=== PATIENT | male | born 1985 ===

== ENCOUNTER → 2022-08-26 15:49 | Outpatient (BNVA) | payer OTHER, SELFPAY | PROVIDERS: Referring Provider Family Medicine; Visit Provider Podiatrist Foot & Ankle Surgery | DX: M25.371 Other instability, right ankle (principal); Q66.71 Congenital pes cavus, right foot; Q66.72 Congenital pes cavus, left foot | CPT/HCPCS: 73610; 99204 ==

== ENCOUNTER 2022-10-03 15:54 | Outpatient (CLI) | payer OTHER, SELFPAY ==
--- NOTE | 2022-10-03 16:00 | MR_ITS ---
WS: [id number] MRI RIGHT ANKLE without CONTRAST. COMPARISON: Ankle radiograph 08/26/2022 Multiplanar, multisequence imaging is performed without contrast. No marrow edema or acute fracture. Tibiotalar joint is normal. No osteochondral lesions. Distal tibia is normal. Calcaneus is normal. Normal signal in the subtalar joint. The Achilles tendon and the joelle ntar fascia are normal. There is a very small amount of increased fluid in the peroneal tendon sheath. Normal course of the p eroneal tendons. On the T1 and proton density sequence there is increased T2 signal in the peroneal b lucia tendon which resolves on the heavily T2 weighted sequence suggesting this is magic angle artifa ct and not true split tear. The extensor flexor tendons are normal. No significant fibrosis and scarr ing noted in the ligaments of the ankle. There is metallic artifact at the medial malleolus from prio r surgery. The deltoid ligament appears normal. There is no joint effusion. There is a very small marcio unt of increased T2 signal consistent with fluid just anterior to the tibiotalar joint. MR/MR ankle RT wo con* [id number] IMPRESSION: 1. No fracture or edema. 2. No osteochondral lesions. 3. Very small amount of increased fluid along the anterior tibiotalar joint. 4. Mild tenosynovitis peroneal tendon sheath.
== END 2022-10-03 15:55 | disposition home or self-care (01) ==
PROVIDERS: Visit Provider Podiatrist Foot & Ankle Surgery
DX: M25.571 Pain in right ankle and joints of right foot (principal); M65.871 Other synovitis and tenosynovitis, right ankle and foot
CPT/HCPCS: 73721

== ENCOUNTER → 2022-10-30 15:27 | Outpatient (BNVA) | payer OTHER, SELFPAY | PROVIDERS: Visit Provider Podiatrist Foot & Ankle Surgery | DX: M65.871 Other synovitis and tenosynovitis, right ankle and foot (principal); Q66.71 Congenital pes cavus, right foot; M25.371 Other instability, right ankle | CPT/HCPCS: 99214 ==